=== PATIENT | male | born 1930 | race Caucasian/White ===

== ENCOUNTER → 2017-08-02 | Outpatient (CLI) | payer OTHER ==
[~2017-08-02] MED LIST: ASPIR 8181 MG PO; BRIMONIDINE TAR1 BO1; CEPHALEXIN 500500 M3 PO; ENTRESTO 24 MG1 EACH PO; FLOMAX0.4 MG PO; GLAUCOMA EYE DROP OPHTHALMIC; LOPERAMIDE 2 MG2 M1 PO; LOPRESSOR25 PO; LORTAB 5-325 M1 EACH PO; PHENAZOPYRIDIN200 M2 PO; POTASSIUM20 MEQ/15 PO; PROSCAR 5MG TABL5 MG PO; PROTONIX40 M1 PO; SEROQUEL 25 MG25 M1 PO; TYLENOL325 MG PO; VENTOLIN HFA 1818 GM INH; XALATAN2.5 ML; XARELTO15 MG PO
== END ==
LOC: RAD 16:22
DX: R91.8 Other nonspecific abnormal finding of lung field (principal)